=== PATIENT | male | born 1950 | race Caucasian/White ===

== ENCOUNTER 2017-01-14 08:08 | Day surgery (SDC) | payer OTHER ==
[~2017-01-14] VITALS: Ht 170.2 cm; Wt 73.4 kg
[~2017-01-14 08:08] MED LIST: ALPR0.5T PO; ASPI-664 PO; FER325 PO; METF500T4 PO; SIMV20TA2 PO
[2017-01-14 08:54] VITALS: Ht 170.2 cm; Wt 73.4 kg
[2017-01-14] MEDS ORDERED: ENAL5TAB PO (09:00)
[2017-01-14 09:25] VITALS: BP 168/79; PULSE 88; RESP 18
[2017-01-14] MEDS ORDERED: PROPOFOL 20 ML ONE (09:49)
[2017-01-14 10:39] VITALS: BP 137/76; RESP 20
--- NOTE | 2017-01-14 11:05 | GILP ---
DATE OF PROCEDURE: 01/14/2017 NAME OF PROCEDURES: Colonoscopy and biopsy. SURGEON: Jian Goode MD PREOPERATIVE DIAGNOSIS: Screening colonoscopy. POSTOPERATIVE DIAGNOSES: 1. Colonoscopy all the way to the cecum. 2. Flat polyp in the sigmoid colon was removed using biopsy forceps. 3. Internal and external hemorrhoids. INDICATION FOR THE PROCEDURE: Mr. Librado Washington is a 66-year-old male patient who had rectal cancer f or which he has undergone surgery and radiation. The patient was scheduled for screening colonoscop y. The procedure and possible complications are well explained to the patient. The patient understood and consented to the procedure. DESCRIPTION OF PROCEDURE: Under the influence of anesthesia, the colonoscope was carefully introduc ed in the rectum and under direct vision, it was advanced all the way to the cecum. FINDINGS: The patient had a flat polyp in the sigmoid colon and it was removed using the biopsy for ceps. The patient was noted to have internal and external hemorrhoids. He tolerated the procedure very well and there was no complication from the procedure. At the end o f the procedure, he was awake with stable vital signs and he was discharged home to the care of his family. IMPRESSION: 1. Colonoscopy all the way to the cecum. 2. Flat polyp in the sigmoid colon was removed using the biopsy forceps. 3. Internal and external hemorrhoids. PLAN: Await histopathology report. The timing for the next colonoscopy will be dictated after revi guerrero the biopsy report. Dictated By: JIAN NAIK/ALANA Conf#: [id number] DID#: [id number] CC: JIAN GOODE MD;*End*
== END 2017-01-14 18:00 | disposition home or self-care (01) ==
LOC: GIL 08:08
PROVIDERS: ATTEND Internal Medicine Gastroenterology
DX: Z12.11 Encounter for screening for malignant neoplasm of colon (principal); D12.5 Benign neoplasm of sigmoid colon; K64.8 Other hemorrhoids; K64.4 Residual hemorrhoidal skin tags; E78.5 Hyperlipidemia, unspecified; E11.9 Type 2 diabetes mellitus without complications
CPT/HCPCS: 88305